=== PATIENT | male | born 1945 | race Caucasian/White ===

== ENCOUNTER 2017-06-07 09:57 | Emergency (ER) | payer MEDICARE ==
--- NOTE | 2017-06-07 11:16 | XRAY Report ---
EXAM: CHEST RADIOGRAPHY EXAM DATE: 06/07/2017 11:04 AM. CLINICAL HISTORY: Cough x 1 month. COMPARISON: None. TECHNIQUE: 2 views. FINDINGS: Lungs/Pleura: No focal opacities evident. No pleural effusion. No pneumothorax. Normal volumes. Mediastinum: Heart and mediastinal contours are unremarkable. Other: None. IMPRESSION: Normal 2-view chest radiography. [facility] Referring Provider Line: [phone] SITE ID: [id number]
--- NOTE | 2017-06-07 12:38 | ED Physician Documentation ---
History of Present Illness - Stated complaint Stated Complaint: COUGH - Chief complaint Chief Complaint: Resp - Additonal information Additional information: hx from pt 71 male hx a fib on eliquis as well as chrohns he has had a cough for a month and the last time he had a cough that long it was a viral URI that had turned into a bacterial infection and he needed steroids and antibiotics to get better so he came to the ER to get steroids and antibiotics no fever no leg swelling has had some CP too sometimes with cough and also at rest sx for a month Review of Systems Constitutional: denies: Fever, Chills Throat: denies: Sore throat Cardiac: reports: Chest pain / pressure Respiratory: reports: Dyspnea, Cough Musculoskeletal: reports: Extremity swelling Endocrine: denies: Easy bruising / bleeding Immunocompromised: denies: Immunocompromised PD PAST MEDICAL HISTORY - Past Medical History Past Medical History: Yes Cardiovascular: Hypertension GI: Crohn's disease - Past Surgical History Past Surgical History: Yes General: Colonoscopy, EGD - Present Medications Home Medications: Ambulatory Orders Medication Instructions Recorded Confirmed Amox/Clav 875/125 [Augmentin] 1 each PO Q12H #20 tablet 06/07/17 Apixaban [Eliquis] 06/07/17 Benzonatate [Tessalon] 100 mg PO TID PRN #20 capsule 06/07/17 Carvedilol [Coreg] 06/07/17 Cholecalciferol (Vitamin D3) 06/07/17 [Vitamin D3] Flecainide [Tambocar] 100 06/07/17 Lisinopril [Prinivil] 06/07/17 Metoprolol Tartrate [Lopressor] 06/07/17 Omeprazole [PriLOSEC] 40 06/07/17 Sulfasalazine [Azulfidine] 06/07/17 predniSONE [Deltasone] 60 mg PO DAILY 5 Days tablet 06/07/17 - Allergies Allergies/Adverse Reactions: Allergies Allergy/AdvReac Type Severity Reaction Status Date / Time No Known Drug Allergies Allergy Verified 06/07/17 10:22 - Social History Does the pt smoke?: No Smoking Status: Never smoker Does the pt drink ETOH?: No Does the pt have substance abuse?: No - Immunizations Immunizations are current?: Yes - POLST Patient has POLST: Yes PD ED PE NORMAL - Vitals Vital signs reviewed: Yes - General General: Alert and oriented X 3 - HEENT HEENT: PERRL - Neck Neck: Supple, no meningeal sign - Cardiac Cardiac: RRR - Respiratory Respiratory: No respiratory distress, Clear bilaterally - Abdomen Abdomen: Soft, Non tender - Extremities Extremities: Normal ROM s pain, No edema, No calf tenderness / cord - Neuro Neuro: Alert and oriented X 3 Results - Vitals Vitals: Vital Signs - 24 hr 06/07/17 06/07/17 06/07/17 10:26 11:30 11:59 Temperature 36.5 C Heart Rate 49 L 48 L 46 L Respiratory 18 17 18 Rate Blood Pressure 174/75 H 156/66 H 177/77 H O2 Saturation 98 97 96 Oxygen O2 Source Room air - EKG (time done) 1039 Rate: Rate (enter#) (45) Rhythm: NSR Ischemia: T wave inversion (inferior) - Labs Labs: Laboratory Tests 06/07/17 12:40 Troponin I < 0.04 - Rads (name of study) CXR Radiology: See rad report (NACPD) PD MEDICAL DECISION MAKING - ED course ED course: sounds like bronchitis but pt said he was having CP so an EKG was done notable for bradycardia and TWI inferior - no old to compare with - will check trop - ashley but likely 2/2 meds and no associated weakness syncope hypotension etc - trop neg will dc with pred and zmax Departure - Departure Disposition: 01 Home, Self Care Clinical Impression: Bronchitis Condition: Good Instructions: ED Upper Resp Infec Abx Tx Follow-Up: [facility] [Provider Group] Prescriptions: Amox/Clav 875/125 [Augmentin] 1 each PO Q12H #20 tablet Benzonatate [Tessalon] 100 mg PO TID PRN #20 capsule PRN Reason: to ease cough predniSONE [Deltasone] 60 mg PO DAILY 5 Days tablet Comments: Your heart rate is in the 40s - that doesn't seem to be causing you symptoms and your blood pressure is fine - but it is slower than normal so please ask your senior designer/art director if you should decrease your dose of coreg.
[2017-06-07 13:49] VITALS: BP 172/88
== END 2017-06-07 13:50 | disposition home or self-care (01) ==
LOC: ED 09:57
DX: J40 Bronchitis, not specified as acute or chronic (principal); I10 Essential (primary) hypertension; I48.91 Unspecified atrial fibrillation; Z79.01 Long term (current) use of anticoagulants; K50.90 Crohn's disease, unspecified, without complications
CPT/HCPCS: 36415; 71020; 84484; 93005; 99283; 99284

== ENCOUNTER 2018-03-30 23:47 | Outpatient (CLI) | payer MEDICARE, OTHER | END 2018-03-30 23:48 | disposition critical access hospital (66) | LOC: EMS 23:47 | PROVIDERS: ATTEND Surgery | DX: R50.9 Fever, unspecified (principal); M79.10 Myalgia, unspecified site; R11.0 Nausea | CPT/HCPCS: A0425; A0427 ==

== ENCOUNTER 2018-03-31 00:13 | Emergency (ER) | payer MEDICARE, OTHER ==
[2018-03-31] MEDS ORDERED: SODIUM CHLORIDE 0.9% 1,000 ML IV ONE (00:21)
--- NOTE | 2018-03-31 01:22 | ED Physician Documentation ---
History of Present Illness - Stated complaint Stated Complaint: BODY ACHES - Chief complaint Chief Complaint: General - History obtained from History obtained from: Patient, Family (spouse (at bedside)) - History of Present Illness Timing: Today Improved by: nothing Worsened by: no exacerbating factors - Additonal information Additional information: Patient complains of generalized malaise, myalgias, fever Tmax 103. Complains of generalized headache. Symptoms started this morning. Review of Systems Constitutional: reports: Fever, Chills, Myalgias, Fatigue, Sweats Eyes: denies: Photophobia Throat: denies: Sore throat Cardiac: reports: Reviewed and negative Respiratory: denies: Dyspnea, Cough GI: reports: Nausea, Vomiting, Diarrhea (chronic). denies: Abdominal Pain : denies: Dysuria, Frequency Neurologic: reports: Headache. denies: Generalized weakness, Focal weakness, Numbness, Confused, Altered mental status PD PAST MEDICAL HISTORY - Past Medical History Cardiovascular: Hypertension GI: Crohn's disease - Past Surgical History Past Surgical History: Yes General: Colonoscopy, EGD - Present Medications Home Medications: Ambulatory Orders Medication Instructions Recorded Confirmed Apixaban [Eliquis] 5 mg PO BID 06/07/17 03/31/18 Carvedilol [Coreg] 12.5 mg PO BID 06/07/17 03/31/18 Cholecalciferol (Vitamin D3) 1 cap PO DAILY 06/07/17 03/31/18 [Vitamin D3] Flecainide [Tambocar] 100 mg PO BID 06/07/17 03/31/18 Lisinopril [Prinivil] 10 mg PO DAILY 06/07/17 03/31/18 Omeprazole [PriLOSEC] 40 tab PO DAILY 06/07/17 03/31/18 Aspirin 1 tab PO DAILY 03/31/18 03/31/18 Atorvastatin Calcium [Lipitor] 40 mg PO DAILY 03/31/18 03/31/18 Cyanocobalamin (Vitamin B-12) 2,500 mcg SL DAILY 03/31/18 03/31/18 [Vitamin B-12] - Allergies Allergies/Adverse Reactions: Allergies Allergy/AdvReac Type Severity Reaction Status Date / Time No Known Drug Allergies Allergy Verified 03/31/18 00:26 - Social History Does the pt smoke?: No Smoking Status: Never smoker Does the pt drink ETOH?: No Does the pt have substance abuse?: No - Immunizations Immunizations are current?: Yes - POLST Patient has POLST: Yes PD ED PE NORMAL - Vitals Vital signs reviewed: Yes - General General: Alert and oriented X 3, No acute distress, Well developed/nourished - HEENT HEENT: Moist mucous membranes, Pharynx benign - Neck Neck: Supple, no meningeal sign - Cardiac Cardiac: RRR, No murmur - Respiratory Respiratory: No respiratory distress, Clear bilaterally - Abdomen Abdomen: Normal bowel sounds, Soft, Non tender, Non distended - Back Back: No CVA TTP - Derm Derm: Normal color, Warm and dry, No rash - Extremities Extremities: No edema - Neuro Neuro: Alert and oriented X 3 Eye Opening: Spontaneous Motor: Obeys Commands Verbal: Oriented GCS Score: 15 Results - Vitals Vitals: Vital Signs - 24 hr 03/31/18 03/31/18 03/31/18 00:15 00:53 01:18 Temperature 38.2 C H 37.0 C Heart Rate 103 H 92 89 Respiratory 12 25 H 19 Rate Blood Pressure 146/67 H 138/69 H 119/54 L O2 Saturation 95 96 98 Oxygen O2 Source Room air - Rads (name of study) chest xray Radiology: Prelim report reviewed, See rad report PD MEDICAL DECISION MAKING - ED course Complexity details: reviewed results, re-evaluated patient, considered differential, d/w patient, d/w family Departure - Departure Disposition: 01 Home, Self Care Clinical Impression: Viral syndrome Condition: Good Instructions: ED Viral Syndrome Follow-Up: Huan Vora MD [Primary Care Provider] - Discharge Date/Time: 03/31/18 03:47
[2018-03-31 01:32] LABS: ALBUMIN 2.9 g/dL (3.2-5.5); ALBUMIN/GLOBULIN RATIO 0.9 (1.0-2.2); BILIRUBIN,TOTAL 0.4 mg/dL (0.2-1.0); CALCIUM 8.2 mg/dL (8.5-10.3); CREATININE 1.2 mg/dL (0.6-1.2); TOTAL PROTEIN 6.2 g/dL (6.7-8.2)
[2018-03-31 01:34] LABS: BASOPHILS % (AUTO) 0.3 %; EOSINOPHILS # (AUTO) 0.7 10^3/uL (0.0-0.7); EOSINOPHILS % (AUTO) 5.2 %; LYMPHOCYTES # (AUTO) 0.6 10^3/uL (1.5-3.5); LYMPHOCYTES % (AUTO) 4.5 %; MEAN CORPUSCULAR HEMOGLOBIN 28.3 pg (27.0-31.0); MEAN CORPUSCULAR HGB CONC 33.5 g/dL (32.0-36.0); MEAN CORPUSCULAR VOLUME 84.5 fL (80.0-94.0); MEAN PLATELET VOLUME 7.1 fL (7.4-11.4); MONOCYTES # (AUTO) 1.3 10^3/uL (0.0-1.0); MONOCYTES % (AUTO) 9.7 %; NEUTROPHILS # (AUTO) 10.9 10^3/uL (1.5-6.6); NEUTROPHILS % (AUTO) 80.3 %; PLT - PLATELET COUNT 265 10^3/uL (130-450); RED BLOOD COUNT 3.17 10^6/uL (4.70-6.10); RED CELL DISTRIBUTION WIDTH 14.1 % (12.0-15.0); WHITE BLOOD COUNT 13.6 x10^3/uL (4.8-10.8)
[2018-03-31] MEDS ORDERED: ACETAMINOPHEN 325 MG TABLET PO STA (01:44)
[2018-03-31 02:00] LABS: BILIRUBIN,URINE NEGATIVE (NEGATIVE); GLUCOSE, URINE (UA) NEGATIVE (NEGATIVE); KETONES,URINE (UA) NEGATIVE (NEGATIVE); LEUKOCYTE ESTERASE, URINE NEGATIVE (NEGATIVE); NITRITE,URINE NEGATIVE (NEGATIVE); OCCULT BLOOD,URINE TRACE-INTA (NEGATIVE); PROTEIN,URINE NEGATIVE (NEGATIVE); UROBILINOGEN,URINE 0.2 (NORMAL) E.U./dL (NORMAL)
[2018-03-31 02:03] LABS: CLARITY,URINE CLEAR (CLEAR)
--- NOTE | 2018-03-31 02:31 | XRAY Report ---
Reason: fever Procedure Date: 03/31/2018 Accession Number: [id number] / [id number] Procedure: XR - Chest 2 View X-Ray CPT Code: 86834 FULL RESULT: EXAM: CHEST RADIOGRAPHY EXAM DATE: 03/31/2018 02:25 AM. CLINICAL HISTORY: Fever. COMPARISON: CHEST 2 VIEW PA/LAT 06/07/2017 10:53 AM. TECHNIQUE: 2 views. FINDINGS: Lungs/Pleura: No alveolar consolidation or pleural effusion seen. No pneumothorax. Mediastinum: Heart and mediastinal contours are unremarkable. Other: None. IMPRESSION: 1. No acute abnormality seen in the chest. [facility]
[2018-03-31 03:22] VITALS: BP 112/63
== END 2018-03-31 03:47 | disposition home or self-care (01) ==
LOC: EDUNIT# → ED 00:13
DX: B34.9 Viral infection, unspecified (principal); I10 Essential (primary) hypertension
CPT/HCPCS: 71046; 80053; 81003; 83605; 83690; 85025; 87040; 87275; 87276; 96360; 99282; 99284; A9270; 36415; 81001; 87086

== ENCOUNTER 2018-08-16 07:29 | Day surgery (SDC) | payer OTHER ==
[~2018-08-16 07:29] MED LIST: BRIMONIDINE 0.2% OPHTH DROPS 5 ML ONE; BSS/LIDOCAINE/EPINEPHRINE 1 ML SYRINGE ONE; CYCLOPENTOLATE 1% OPHTH DROPS 2 ML ONE; KETOROLAC 0.45% OPHTH DROPS ONE; PHENYLEPHRINE 2.5% OPHTH 2 ML DROPS ONE; PROPARACAINE 0.5% OPHTH DROPS 15 ML ONE; TIMOLOL 0.5% OPHTH DROPS ONE; TRIAMCIN/MOXIFLOX OPHTHALMIC 0.6 ML VIAL IO ONE; VANCOMYCIN OPHTHALMI 8MG/0.8ML 8 MG/0.8 ML SYRINGE IO ONE
[2018-08-16] MEDS ORDERED: PROPARACAINE 0.5% OPHTH DROPS 15 ML LEFTEYE ONE ×2 (07:45→08:42)
[2018-08-16] MEDS ORDERED: PHENYLEPHRINE 2.5% OPHTH 2 ML DROPS LEFTEYE ONE (07:45)
[2018-08-16] MEDS ORDERED: CYCLOPENTOLATE 1% OPHTH DROPS 2 ML LEFTEYE ONE (07:45)
[2018-08-16] MEDS ORDERED: KETOROLAC 0.45% OPHTH DROPS LEFTEYE ONE (07:45)
[2018-08-16] MEDS ORDERED: LACTATED RINGERS 500 ML IV ONE (07:51)
--- NOTE | 2018-08-16 07:56 | ANESTHESIA ---
Pre-Anesthesia VS, & Labs - Diagnosis Left nuclear sclerotic cataract - Procedure Left phaco with IOL implant Height 5 ft 8 in Weight (kg) 82 kg Body Mass Index 25.8 - NPO >8 hours, Other (Apple juice with pills) - Lab Results Lab results reviewed: No Home Medications and Allergies Apixaban [Eliquis] 5 mg PO BID 06/07/17 Carvedilol [Coreg] 12.5 mg PO BID 06/07/17 Cholecalciferol (Vitamin D3) [Vitamin D3] 1 cap PO DAILY 06/07/17 Flecainide [Tambocar] 100 mg PO BID 06/07/17 Lisinopril [Prinivil] 10 mg PO DAILY 06/07/17 Omeprazole [PriLOSEC] 40 tab PO DAILY 06/07/17 Aspirin 1 tab PO DAILY 03/31/18 Cyanocobalamin (Vitamin B-12) [Vitamin B-12] 2,500 mcg SL DAILY 03/31/18 Allergies/Adverse Reactions: Allergies Allergy/AdvReac Type Severity Reaction Status Date / Time No Known Drug Allergies Allergy Verified 03/31/18 00:26 Anes History & Medical History - Anesthetic History Anesthesia Complications: reports: No previous complications Family history of Anesthesia Complications: Denies Family history of Malignant Hyperthermia: Denies - Medical History Cardiovascular: reports: Hypertension Pulmonary: reports: None Gastrointestinal: reports: None, Crohn's disease Urinary: reports: None Neuro: reports: None Musculoskeletal: reports: None Endocrine/Autoimmune: reports: None Blood Disorders: reports: None, Anemia Skin: reports: None Smoking Status: Never smoker Psychosocial: reports: No issues indicated - Surgical History General: Colonoscopy, EGD Eyes Ears Nose Throat (EENT): Cataracts Exam General: Alert Dental: WNL Mouth Opening: Greater than 4 Fingerbreadths Neck Mobility: Normal Mallampati classification: I Thyromental Distance: greater than 6 cm Respiratory: Lungs clear Cardiovascular: Regular rate Neurological: Normal speech Mental/Cognitive Status: Alert/Oriented X3 Cognitive Status: Within normal limits Plan Anesthesia Type: MAC Consent for Procedure(s) Verified and Reviewed: Yes Code Status: Attempt Resuscitation ASA classification: 2-Mild systemic disease Is this case an emergency?: No
[2018-08-16] MEDS ORDERED: MIDAZOLAM 2 MG/2 ML VIAL IVP ONE (08:30)
[2018-08-16] MEDS ORDERED: EPINEPHrine 1 MG/ML AMP IR ONE (08:40)
[2018-08-16] MEDS ORDERED: BRIMONIDINE 0.2% OPHTH DROPS 5 ML OPTH ONE (08:40)
[2018-08-16] MEDS ORDERED: CHONDR SULF/HYALURONATE SYRINGE IO ONE (08:41)
[2018-08-16] MEDS ORDERED: TIMOLOL 0.5% OPHTH DROPS OPTH ONE (08:41)
[2018-08-16] MEDS ORDERED: BSS/LIDOCAINE/EPINEPHRINE 1 ML SYRINGE IO ONE (08:41)
[2018-08-16] MEDS ORDERED: TRIAMCIN/MOXIFLOX OPHTHALMIC 0.6 ML VIAL IO ONE ×2 (08:42→08:55)
[2018-08-16] MEDS ORDERED: VANCOMYCIN OPHTHALMI 8MG/0.8ML 8 MG/0.8 ML SYRINGE IO ONE ×2 (08:42→08:56)
[2018-08-16 09:19] VITALS: BP 159/69
--- NOTE | 2018-08-16 10:07 | OPERATIVE REPORT ---
DATE OF SERVICE: 08/16/2018 Physician: Chevy Mabry MD PREOPERATIVE DIAGNOSIS: Visually significant cataract, left eye. Cataract surgery was performed on the right eye in 2015 elsewhere. POSTOPERATIVE DIAGNOSIS: Visually significant cataract, left eye. Cataract surgery was performed on the right eye in 2015 elsewhere. PROCEDURE: Phacoemulsification with posterior chamber intraocular lens implant, left eye. SURGEON: Chevy Mabry MD ANESTHESIA: Monitored anesthesia care. COMPLICATIONS: None. INDICATIONS FOR PROCEDURE: This is a 73-year-old man with progressive vision loss in the left eye du e to 2+ nuclear sclerotic, 1+ cortical and 2 to 3+ posterior subcapsular cataract. Best corrected vi sual acuity was 20/50 with glare to 20/160 in the left eye. Indications for surgery were overall dec rease in vision, difficulty seeing words on a computer screen, difficulty reading, difficulty seeing words closed caption and game scores on TV, difficulty seeing street signs, difficulty driving in low light or at night, difficulty driving at night because of headlights from other vehicles and difficu lty with glare or bright lights in any situation. He was consented at length concerning risks and be nefits of cataract surgery, after which he expressed a desire to proceed with surgery. OPERATIVE PROCEDURE: The patient was taken into OR #3 and placed under monitored anesthesia care. A surgical timeout was conducted confirming correct patient, correct procedure and correct surgical si te. He was given topical anesthesia and prepped and draped in the usual sterile fashion. The eye wa s entered at the 6 and 3 o'clock positions. Intracameral Shugarcaine was injected into the anterior chamber, followed by Viscoat. A continuous-tear curvilinear capsulorrhexis was performed. The nucle us was hydrodissected and phacoemulsified. The cortex was evacuated using automated infusion and asp iration. Provisc was injected in the capsular bag, and a 18.5 diopter intraocular lens inserted in t he bag. Approximately 0.8 mL mixture of triamcinolone, moxifloxacin and vancomycin was injected subc onjunctivally in the superior quadrant for infection and inflammation prophylaxis. I nicked the bloo d vessels, so there was some bleeding from the superior miryam. I and A was used to evacuate the vis coelastic materials. The eye was inflated to physiologic pressure using balanced salt solution and f ound to be watertight. Patient was taken from the operating room in good condition and given postop instructions. TD: 08/16/2018 09:08
== END 2018-08-16 07:30 | disposition home or self-care (01) ==
LOC: SDS 07:29
PROVIDERS: ATTEND Ophthalmology
PROC: 08RK3JZ Replacement of Left Lens with Synthetic Substitute, Percutaneous Approach (ICD-10-PCS; principal; 2018-08-16 08:30)
DX: H25.812 Combined forms of age-related cataract, left eye (principal); I10 Essential (primary) hypertension; E78.00 Pure hypercholesterolemia, unspecified; K50.90 Crohn's disease, unspecified, without complications
CPT/HCPCS: 66984; A9270; J3490; V2632

== ENCOUNTER 2019-04-08 11:39 | Emergency (ER) | payer OTHER ==
[2019-04-08 11:49] VITALS: BP 172/100
--- NOTE | 2019-04-08 12:41 | ED Physician Documentation ---
PD HPI URI - Stated complaint Stated Complaint: COUGH - Chief complaint Chief Complaint: Resp - History obtained from History obtained from: Patient - History of Present Illness Timing - onset: How many months ago (2 months on and off coughing, with worse the past 3-4 days, with some sputum production now. Has been treated with it twice with steroids and abx and gotten better. His PMD discussed potential DONNY med but he feels not it since responded to meds.) Timing details: Gradual onset, Waxing and waning Associated symptoms: Dry cough, Productive cough (just slightly the past few days). No: Fever Contributing factors: No: Sick contact, COPD / asthma Improves by: Medication (has improved twice with steroid/abx (zpack) in the past 2 months.) Recently seen: Clinic Review of Systems Constitutional: denies: Fever, Chills Nose: reports: Congestion. denies: Rhinorrhea / runny nose, Sinus pressure / pain Throat: denies: Sore throat Cardiac: denies: Chest pain / pressure Respiratory: reports: Cough. denies: Dyspnea, Wheezing GI: denies: Vomiting, Diarrhea Skin: denies: Rash PD PAST MEDICAL HISTORY - Past Medical History Cardiovascular: Hypertension Respiratory: None Neuro: None Endocrine/Autoimmune: None GI: None, Crohn's disease : None HEENT: Chronic vision loss Psych: None Musculoskeletal: None Derm: None - Past Surgical History Past Surgical History: Yes General: Colonoscopy, EGD HEENT: Cataracts - Present Medications Home Medications: Ambulatory Orders Medication Instructions Recorded Confirmed Apixaban [Eliquis] 5 mg PO BID 06/07/17 08/15/18 Carvedilol [Coreg] 12.5 mg PO BID 06/07/17 08/16/18 Cholecalciferol (Vitamin D3) 1 cap PO DAILY 06/07/17 08/16/18 [Vitamin D3] Flecainide [Tambocar] 100 mg PO BID 06/07/17 08/16/18 Lisinopril [Prinivil] 10 mg PO DAILY 06/07/17 08/16/18 Omeprazole [PriLOSEC] 40 tab PO DAILY 06/07/17 08/16/18 Cyanocobalamin (Vitamin B-12) 2,500 mcg SL DAILY 03/31/18 08/16/18 [Vitamin B-12] Benzonatate [Tessalon Perle] 100 mg PO TID PRN #25 capsule 04/08/19 Doxycycline Monohydrate 100 mg PO BID #14 tablet 04/08/19 dexAMETHasone [Decadron] 4 mg PO DAILY #7 tablet 04/08/19 guaiFENesin/CODEINE [Robitussin AC] 10 ml PO Q6H PRN #240 ml 04/08/19 - Allergies Allergies/Adverse Reactions: Allergies Allergy/AdvReac Type Severity Reaction Status Date / Time No Known Drug Allergies Allergy Verified 03/31/18 00:26 - Social History Does the pt smoke?: No Smoking Status: Never smoker Does the pt drink ETOH?: No Does the pt have substance abuse?: No - Immunizations Immunizations are current?: Yes - POLST Patient has POLST: Yes PD ED PE NORMAL - Vitals Vital signs reviewed: Yes - General General: Alert and oriented X 3, No acute distress, Well developed/nourished - HEENT HEENT: Ears normal, Pharynx benign (no uvular nor soft tissue swelling) - Neck Neck: Supple, no meningeal sign - Cardiac Cardiac: RRR, No murmur - Respiratory Respiratory: Clear bilaterally Results - Vitals Vitals: Vital Signs - 24 hr 04/08/19 11:45 Temperature 36.8 C Heart Rate 63 Respiratory 18 Rate Blood Pressure 172/100 H O2 Saturation 99 Oxygen O2 Source Room air - Rads (name of study) chest xray Radiology: Prelim report reviewed (no infiltrates), See rad report PD MEDICAL DECISION MAKING - ED course Complexity details: considered differential (likely viral URI but he has had bronchitis often in the past, and he is concerned. Has DONNY but symptoms have responded to steroids/abx twice. Here for course again. Discussed with him that the DONNY may be playing some part and consider changing. ), d/w patient Departure - Departure Disposition: 01 Home, Self Care Clinical Impression: Upper respiratory infection Qualifiers: URI type: unspecified URI Qualified Code(s): J06.9 - Acute upper respiratory infection, unspecified Condition: Stable Record reviewed to determine appropriate education?: Yes Instructions: ED Upper Resp Infec Abx Tx Follow-Up: CASE ROQUE DO [Primary Care Provider] - Prescriptions: Benzonatate [Tessalon Perle] 100 mg PO TID PRN #25 capsule PRN Reason: Cough dexAMETHasone [Decadron] 4 mg PO DAILY #7 tablet Doxycycline Monohydrate 100 mg PO BID #14 tablet guaiFENesin/CODEINE [Robitussin AC] 10 ml PO Q6H PRN #240 ml PRN Reason: Cough Comments: I was able to transmit the prescriptions to the [facility].. Stay well- hydrated. Decadron steroid daily for a week. Doxycycline twice daily for a week for antibiotic. Tessalon if needed for cough suppression. Add cough medicine as needed. Recheck if not improving well over the next several days to week. Discharge Date/Time: 04/08/19 13:31
--- NOTE | 2019-04-08 13:00 | XRAY Report ---
Reason: cough Procedure Date: 04/08/2019 Accession Number: [id number] / [id number] Procedure: XR - Chest 2 View X-Ray CPT Code: 44612 FULL RESULT: EXAM: CHEST RADIOGRAPHY EXAM DATE: 04/08/2019 12:31 PM. CLINICAL HISTORY: Cough. COMPARISON: CHEST 2 VIEW 03/31/2018 2:08 AM. TECHNIQUE: 2 views. FINDINGS: Lungs/Pleura: No focal opacities evident. No pleural effusion. No pneumothorax. Normal volumes. Mediastinum: Heart and mediastinal contours are unremarkable. Other: No acute finding compared with 03/31/2018. IMPRESSION: Clear lungs.. [facility]
[2019-04-08] MEDS ORDERED: DOXYCYCLINE 100 MG TABLET PO STA (13:03)
[2019-04-08] MEDS ORDERED: DEXAMETHASONE 10 MG/ML VIAL PO STA (13:03)
[2019-04-08] MEDS ORDERED: BENZONATATE 100 MG CAPSULE PO STA (13:03)
[2019-04-08] MEDS ORDERED: CHERRY SYRUP 10 ML UDC PO ONE (13:03)
== END 2019-04-08 13:31 | disposition home or self-care (01) ==
LOC: ED 11:39
DX: J06.9 Acute upper respiratory infection, unspecified (principal); I10 Essential (primary) hypertension; Z79.01 Long term (current) use of anticoagulants
CPT/HCPCS: 71046; 99284; A9270

== ENCOUNTER 2021-04-03 15:52 | Outpatient (CLI) | payer MEDICARE, OTHER ==
[2021-04-03 19:14] LABS: HCT - HEMATOCRIT 32.2 % (42.0-52.0); HGB - HEMOGLOBIN 9.7 g/dL (14.0-18.0); MEAN CORPUSCULAR HEMOGLOBIN 27.9 pg (27.0-31.0); MEAN CORPUSCULAR HGB CONC 30.1 g/dL (32.0-36.0); MEAN CORPUSCULAR VOLUME 92.5 fL (80.0-94.0); MEAN PLATELET VOLUME 9.2 fL (7.4-11.4); RED BLOOD COUNT 3.48 10^6/uL (4.70-6.10); RED CELL DISTRIBUTION WIDTH 15.4 % (12.0-15.0); WHITE BLOOD COUNT 9.1 x10^3/uL (4.8-10.8)
[2021-04-03 19:19] LABS: ALBUMIN 3.8 g/dL (3.2-5.5); CALCIUM 8.6 mg/dL (8.5-10.3); CREATININE 1.6 mg/dL (0.6-1.2); PHOSPHORUS 3.2 mg/dL (2.5-4.6); POTASSIUM 4.2 mmol/L (3.5-5.0); URIC ACID 7.8 mg/dL (2.6-7.2)
== END 2021-04-03 15:53 | disposition home or self-care (01) ==
LOC: LAB.S 15:52
PROVIDERS: ATTEND Internal Medicine Nephrology
DX: N18.32 Chronic kidney disease, stage 3b (principal)
CPT/HCPCS: 36415; 80069; 81599; 82043; 82570; 82610; 83970; 84550; 85027

== ENCOUNTER 2022-09-07 00:44 | Emergency (ER) | payer MEDICARE, OTHER ==
[2022-09-07 01:35] LABS: ALBUMIN 3.4 g/dL (3.2-5.5); ALBUMIN/GLOBULIN RATIO 1.2 (1.0-2.2); BILIRUBIN,TOTAL 0.3 mg/dL (0.2-1.0); CALCIUM 8.3 mg/dL (8.5-10.3); CREATININE 1.4 mg/dL (0.6-1.2); POTASSIUM 3.8 mmol/L (3.5-5.0); TOTAL PROTEIN 6.3 g/dL (6.7-8.2)
[2022-09-07 01:49] LABS: BASOPHILS # (AUTO) 0.1 10^3/uL (0.0-0.1); BASOPHILS % (AUTO) 1.2 %; EOSINOPHILS # (AUTO) 0.7 10^3/uL (0.0-0.7); EOSINOPHILS % (AUTO) 7.4 %; HCT - HEMATOCRIT 32.8 % (42.0-52.0); HGB - HEMOGLOBIN 10.4 g/dL (14.0-18.0); LYMPHOCYTES # (AUTO) 2.3 10^3/uL (1.5-3.5); LYMPHOCYTES % (AUTO) 25.4 %; MEAN CORPUSCULAR HEMOGLOBIN 29.1 pg (27.0-31.0); MEAN CORPUSCULAR HGB CONC 31.7 g/dL (32.0-36.0); MEAN CORPUSCULAR VOLUME 91.6 fL (80.0-94.0); MEAN PLATELET VOLUME 9.8 fL (7.4-11.4); MONOCYTES # (AUTO) 0.9 10^3/uL (0.0-1.0); MONOCYTES % (AUTO) 9.6 %; NEUTROPHILS % (AUTO) 55.7 %; PLT - PLATELET COUNT 259 10^3/uL (130-450); RED BLOOD COUNT 3.58 10^6/uL (4.70-6.10); RED CELL DISTRIBUTION WIDTH 13.7 % (12.0-15.0); WHITE BLOOD COUNT 8.9 x10^3/uL (4.8-10.8)
[2022-09-07] MEDS ORDERED: ONDANSETRON 4 MG/2 ML VIAL IVP STA (02:16)
[2022-09-07] MEDS ORDERED: SODIUM CHLORIDE 0.9% 1,000 ML IV STA (02:16)
[2022-09-07] MEDS ORDERED: MORPHINE 2 MG/ML CARPUJECT IVP STA (02:17)
[2022-09-07] MEDS ORDERED: iohexoL-300 100 ML VIAL ONE (02:31)
[2022-09-07 02:45] VITALS: BP 164/77
--- NOTE | 2022-09-07 02:51 | ED Physician Documentation ---
PD HPI ABD PAIN - Stated complaint Stated Complaint: ABD PX - Chief complaint Chief Complaint: Abd Pain - History obtained from History obtained from: Patient - Additional information Additional information: 77yM presents with dull intermittent epigastric abdominal pain over the past month, occurring every 2-3 days without associated fever or vomiting. +nausea. patient always has loose stools and has not had change recently. psh R intestinal resection and anastamosis Review of Systems Constitutional: denies: Fever, Chills Cardiac: denies: Chest pain / pressure Respiratory: denies: Dyspnea, Cough GI: reports: Abdominal Pain, Nausea, Diarrhea (chronic). denies: Vomiting, Bloody / black stool : denies: Dysuria PD PAST MEDICAL HISTORY - Past Medical History Cardiovascular: Hypertension Respiratory: None Neuro: None Endocrine/Autoimmune: None GI: None, Crohn's disease : None HEENT: Chronic vision loss Psych: None Musculoskeletal: None Derm: None - Past Surgical History Past Surgical History: Yes General: Colonoscopy, EGD HEENT: Cataracts - Present Medications Home Medications: Ambulatory Orders Medication Instructions Recorded Confirmed Carvedilol [Coreg] 12.5 mg PO BID 06/07/17 09/07/22 Cholecalciferol (Vitamin D3) 1 cap PO DAILY 06/07/17 09/07/22 [Vitamin D3] Flecainide [Tambocar] 100 mg PO BID 06/07/17 09/07/22 Omeprazole [PriLOSEC] 40 tab PO DAILY 06/07/17 09/07/22 lisinopriL [Prinivil] 10 mg PO DAILY 06/07/17 09/07/22 Cyanocobalamin (Vitamin B-12) 2,500 mcg SL DAILY 03/31/18 09/07/22 [Vitamin B-12] Doxycycline Monohydrate 100 mg PO BID #14 tablet 04/08/19 09/07/22 Adalimumab [Humira(Cf) Pen 80 mg SQ UD 09/07/22 09/07/22 Crohn's-Uc-Hs] Adalimumab [Humira(Cf) Pen] 40 mg SQ ONCE 09/07/22 09/07/22 Apixaban [Eliquis] 5 mg PO DAILY 09/07/22 09/07/22 Oxycodone HCl/Acetaminophen 0.5 each PO Q4H PRN #15 tablet 09/07/22 [Percocet 10-325 mg Tablet] Sildenafil Citrate 100 mg PO DAILY PRN 09/07/22 09/07/22 Tamsulosin [Flomax] 0.4 mg PO HS 09/07/22 09/07/22 amLODIPine [Norvasc] 5 mg PO DAILY 09/07/22 09/07/22 - Allergies Allergies/Adverse Reactions: Allergies Allergy/AdvReac Type Severity Reaction Status Date / Time No Known Drug Allergies Allergy Verified 03/31/18 00:26 - Social History Does the pt smoke?: No Smoking Status: Never smoker Does the pt drink ETOH?: No Does the pt have substance abuse?: No - Immunizations Immunizations are current?: Yes - POLST Patient has POLST: Yes PD ED PE NORMAL - Vitals Vital signs reviewed: Yes - General General: Alert and oriented X 3, No acute distress, Well developed/nourished - HEENT HEENT: Atraumatic, PERRL, EOMI - Neck Neck: Supple, no meningeal sign - Cardiac Cardiac: RRR - Respiratory Respiratory: No respiratory distress, Clear bilaterally - Abdomen Abdomen: Non tender, Non distended, Other (RUQ and epigastrium ttp) - Derm Derm: Normal color, Warm and dry - Extremities Extremities: No deformity - Neuro Neuro: Alert and oriented X 3, No motor deficit, No sensory deficit - Psych Psych: Normal mood, Normal affect Results - Vitals Vitals: Vital Signs - 24 hr 09/07/22 09/07/22 01:04 02:00 Temperature 36.6 C Heart Rate 64 61 Respiratory 14 14 Rate Blood Pressure 182/80 H 164/77 H O2 Saturation 97 99 Oxygen O2 Source Room air - EKG (time done) 0103 EKG releavant findings:: EKG personally interpreted by author of this note. Relevant findings are: Rate: Rate (enter#) (63) Rhythm: NSR [place]: Normal Intervals: Prolonged AL QRS: Poor R wave progression Ischemia: Normal ST segments - Labs Labs: Laboratory Tests 09/07/22 09/07/22 09/07/22 01:16 01:45 02:49 WBC 8.9 RBC 3.58 L Hgb 10.4 L Hct 32.8 L MCV 91.6 MCH 29.1 MCHC 31.7 L RDW 13.7 Plt Count 259 MPV 9.8 Neut # (Auto) 5.0 Lymph # (Auto) 2.3 [place] # (Auto) 0.9 Eos # (Auto) 0.7 Baso # (Auto) 0.1 Absolute Nucleated RBC 0.00 Nucleated RBC % 0.0 Sodium 140 Potassium 3.8 Chloride 112 H Carbon Dioxide 20 L Anion Gap 8.0 BUN 18 Creatinine 1.4 H Estimated GFR (MDRD) 49 L Glucose 115 H Calcium 8.3 L Total Bilirubin 0.3 AST 20 ALT 11 Alkaline Phosphatase 73 Total Protein 6.3 L Albumin 3.4 Globulin 2.9 Albumin/Globulin Ratio 1.2 Lipase 41 Urine Color YELLOW Urine Clarity CLEAR Urine pH 6.0 Ur Specific [place] 1.025 Urine Protein NEGATIVE Urine Glucose (UA) NEGATIVE Urine Ketones NEGATIVE Urine Occult Blood NEGATIVE Urine Nitrite NEGATIVE Urine Bilirubin NEGATIVE Urine Urobilinogen 0.2 (NORMAL) Ur Leukocyte Esterase NEGATIVE Ur Microscopic Review NOT INDICATED Urine Culture Comments NOT INDICATED PD Medical Decision Making - ED course ED course: 77yM p/w epigastric abdominal pain. cbc, abdominal panel ordered and unremarkable from previous. CT revealed gallstones without dilatation. Also with incidental findings which were discussed with patient and his . IV morphine provided with improvement in pain. Meds sent to pharmacy. plan to f/u with MD for referral to surgeon. I gave names of our surgeons as well. return precautions given. Departure - Departure Disposition: 01 Home, Self Care Clinical Impression: Gallstones, Abdominal pain, Renal cyst, Umbilical hernia, Pulmonary nodules Condition: Stable Instructions: Gallstones Dc, ED Gallstone W Biliary Colic Prescriptions: Oxycodone HCl/Acetaminophen [Percocet 10-325 mg Tablet] 0.5 each PO Q4H PRN #15 tablet PRN Reason: Pain Comments: You were seen in the emergency department for gallstones. Pain medicine pr escription was sent to [facility] in [place] electronically. Please follow-up with your primary care provider for referral to a [facility] and return to the emergency department if you have any new or worsening symptoms or other concerns.
[2022-09-07 02:57] LABS: BILIRUBIN,URINE NEGATIVE (NEGATIVE); GLUCOSE, URINE (UA) NEGATIVE (NEGATIVE); KETONES,URINE (UA) NEGATIVE (NEGATIVE); LEUKOCYTE ESTERASE, URINE NEGATIVE (NEGATIVE); NITRITE,URINE NEGATIVE (NEGATIVE); OCCULT BLOOD,URINE NEGATIVE (NEGATIVE); PROTEIN,URINE NEGATIVE (NEGATIVE); UROBILINOGEN,URINE 0.2 (NORMAL) E.U./dL (NORMAL)
[2022-09-07 02:58] LABS: CLARITY,URINE CLEAR (CLEAR)
[2022-09-07] MEDS ORDERED: iohexoL-300 100 ML VIAL IVP ONE (03:15)
[2022-09-07] MEDS ORDERED: oxyCODONE/ACET 5/325 Prepack 4 PO STA (03:45)
--- NOTE | 2022-09-07 08:11 | CT Report ---
PROCEDURE: ABDOMEN/PELVIS W INDICATIONS: epigastric pain CONTRAST: : Omni 300 100ml TECHNIQUE: After the administration of intravenous contrast, 5 mm thick sections acquired from the diaphragms to the symphysis. 5 mm thick coronal and sagittal reformats were acquired. For radiation dose reducti on, the following was used: automated exposure control, adjustment of mA and/or kV according to haydee ent size. COMPARISON: None FINDINGS: Lung bases and heart: Unremarkable. Liver: Unremarkable. Gallbladder and biliary tree: Cholelithiasis with distention but no wall thickening. Bile ducts measu re within normal limits. Spleen: Unremarkable. Pancreas: Unremarkable. Adrenals: No nodules. Kidneys: No complex renal cystic lesions which require follow-up. Bowel and peritoneum: No bowel distension. No pathologic free fluid. Prior ileocecectomy. Linear dens ity in the hepatic flexure measuring 1.9 cm (340). Lymph nodes: No central or retroperitoneal adenopathy. Vessels: No aortic aneurysm. PELVIS Reproductive organs: Unremarkable. Bladder and ureters: Unremarkable. Lymph nodes: No pelvic adenopathy. Bones: No aggressive osseous abnormality. Other: Ventral wall hernia containing a knuckle of nonobstructed bowel. Additional supra umbilical ve ntral hernia containing fat. IMPRESSION: 1.Cholelithiasis with gallbladder hydrops. Findings may indicate early acute cholecystitis. 2.Linear density in the hepatic flexure measuring 1.9 cm, possibly medication such as iron supplement or endoscopy clip, less likely worrisome ingested foreign body. 3.Ventral hernia containing a knuckle of nonobstructed bowel. Agree with preliminary report. Reviewed by: Davie Arce on 09/07/2022 8:10 AM PDT Approved by: Davie Arce on 09/07/2022 8:10 AM PDT Station ID: [id number]
== END 2022-09-07 04:07 | disposition home or self-care (01) ==
LOC: ED 00:44
DX: R10.13 Epigastric pain (principal); K80.20 Calculus of gallbladder without cholecystitis without obstruction; N28.1 Cyst of kidney, acquired; K42.9 Umbilical hernia without obstruction or gangrene; R91.8 Other nonspecific abnormal finding of lung field
CPT/HCPCS: 36415; 74177; 80053; 81003; 83690; 85025; 93005; 96374; 96375; 99284; 99285; Q9967; 81001; 87086